=== PATIENT | female | born 1945 | race Caucasian/White ===

== ENCOUNTER 2022-11-25 07:25 | Day surgery (SDC) | payer MEDICARE ==
[2022-11-21 11:38] VITALS: BP 144/84
[~2022-11-25] VITALS: Ht 160 cm; Wt 70.9 kg
[~2022-11-25 07:25] MED LIST: CLINDAMYCIN HC300 MG PO; COZAAR50 MG PO; CRESTOR10 MG PO; D3-5000125 MCG PO; FEROSUL325 MG PO; FLEVOXIN TABLE1 EACH PO; FLUOCINONIDE15 G1 TOP; FLUOXETINE HCL60 MG PO; IBUPROFEN600 MG PO; METFORMIN HCL500 MG PO; MIRAPEX1 MG PO; NEURONTIN300 MG PO; PLAVIX75 MG PO; PROBIOTICS1 EACH PO; TRAZODONE HCL50 MG PO; VITAMIN B-121000 MC3 PO
[2022-11-25 07:37] VITALS: BP 125/62
--- NOTE | 2022-11-25 08:20 | NUR ---
PT AMBULATED TO THE RESTROOM AND BACK TO HER ROOM. TOLERATED WELL. PT PROVIDED A WARM BLANKET.
--- NOTE | 2022-11-25 10:06 | NUR ---
11/25/22 Marlo Rushing ARRIVED INTO PACU AT 0956. PATIENT WAS ASLEEP AND MAINTAINING HER OWN AIRWAY. PATIENT WAS ABLE TO RESPOND WHEN LIGHTLY STIMULATED. PATIENT DENIED ANY PAIN OR NAUSEA UPON ARRIVAL BUT DID GO BACK TO SLEEP.
[2022-11-25] MEDS ORDERED: IBUPROFEN600 MG PO (10:27)
[2022-11-25] MEDS ORDERED: OXYCODONE-ACET1 EAC1 PO (10:28)
[2022-11-25] MEDS ORDERED: ACETAMINOPHEN500 MG PO (10:28)
[2022-11-25] MEDS ORDERED: METAMUCIL660 GM PO (10:30)
[2022-11-25 10:31] VITALS: BP 133/79
--- NOTE | 2022-11-25 19:01 | OR ---
[facility] [address], [place] [address] Signed DATE OF OPERATION: 11/25/2022 SURGEON: Ravinder Marshall MD PREOPERATIVE DIAGNOSIS: Extensive prolapsing hemorrhoids with bleeding, grade 4 hemorrhoidal disease. POSTOPERATIVE DIAGNOSIS: Extensive prolapsing hemorrhoids with bleeding, grade 4 hemorrhoidal disease. PROCEDURE: Excision of complex hemorrhoidal disease including left lateral posterior accessory and right anterolateral hemorrhoidal complexes. ANESTHESIA: Saddle block with IV sedation, Devonte Ann-Marie, [employer] and local 10 mL of 0.25% Marcaine. INDICATIONS: This 77-year-old white woman is a patient of Dr. Mariee in [place]. She was referred for hemorrhoidal disease. She has relatively extensive hemorrhoidal disease for a number of years. She underwent what sounds like hemorrhoidectomy approximately hemorrhoidal banding approximately 40 years ago. The patient does take Plavix. She has had two small strokes about three years ago. Examination shows significant hemorrhoidal prolapse type disease. Certainly, these hemorrhoids and their associated bleeding are not amenable to hemorrhoidal banding and PPH therapy unlikely considering the findings. I have recommended operative open hemorrhoidal resection for control of her symptoms. The risk of bleeding, infection, variable degrees of incontinence and other unforeseen complications was reviewed in detail with her. She understands and wished to proceed. FINDINGS: The dominant hemorrhoidal complex was in the left lateral aspect. An accessory dominant area was in the accessory position in the midline posteriorly. Less disease was noted in the anterolateral aspect on the right. Hemorrhoidectomy included a wide resection well above the dentate line. At conclusion, good hemostasis was noted. DESCRIPTION OF PROCEDURE: The patient was brought to the operating room after undergoing saddle block type anesthetic. She was placed in the prone mark-knife position with a table flexed. The buttocks were taped apart with silk tape. The perianal preparation was undertaken with a Betadine based solution. She received preoperative antibiotic, Ancef, Flagyl, and Electronically Signed By: RAVINDER MARSHALL MD 11/25/22 1901 PATIENT NAME: JODY GUEVARA OPERATIVE REPORT DATE OF : 49 REPORT #: [id number] PHYSICIAN: RAVINDER MARSHALL MD PCP: EBONIE MARIEE MD REPORT IS CONFIDENTIAL AND NOT TO BE RELEASED WITHOUT AUTHORIZATION [facility] [address], [place] [address] Signed neomycin as an adjunct to a bowel prep preoperatively. She was maintained on a low-fiber diet leading up to operation, did not undergo cathartic therapy as well; however. Digital examination revealed some liquid stool, which was irrigated and suctioned free. There was no further stool leakage. Anal retractor was placed. Examination circumferentially undertaken. The dominant prolapsing hemorrhoidal disease (grade 4 hemorrhoidal disease) on the left lateral aspect. Christensen clamp was used to grasp the hemorrhoidal tissue and the root of the hemorrhoid was secured with a 2-0 chromic suture. Additional elevation of the external component of the hemorrhoid was undertaken. Electrocautery was used to excise the hemorrhoid sparing the internal muscle sphincter complex of course. The root of the hemorrhoid was secured with a chromic tie. Hemostasis assured with electrocautery and mucosa reapproximated with remaining chromic suture. The opening was left externally to allow for drainage as necessary. With similar technique, an accessory posterior hemorrhoidal complex was similarly excised and in the right anterior aspect that complex excised as well. Additional resection was deemed inadvisable. Irrigation was undertaken. A 10 mL of 0.25% Marcaine with epinephrine was injected and a peripad applied after application of a rolled Gel-Foam with bacitracin inserted into the anal canal. Sponge, needle, and counts reported as correct x3. Ravinder Marshall MD /MODL /[id number] cc: Ebonie Mariee MD Copies: EBONIE MARIEE MD ~ Electronically Signed By: RAVINDER MARSHALL MD 11/25/22 1901 PATIENT NAME: JODY GUEVARA OPERATIVE REPORT DATE OF : 49 REPORT #: [id number] PHYSICIAN: RAVINDER MARSHALL MD PCP: EBONIE MARIEE MD REPORT IS CONFIDENTIAL AND NOT TO BE RELEASED WITHOUT AUTHORIZATION
== END 2022-11-25 11:00 | disposition home or self-care (01) ==
LOC: DS 07:25
PROVIDERS: ATTEND Surgery
PROC: 06BY0ZC Excision of Hemorrhoidal Plexus, Open Approach (ICD-10-PCS; 2022-11-25)
PROC: 06BY0ZC Excision of Hemorrhoidal Plexus, Open Approach (ICD-10-PCS; principal; 2022-11-25 09:00)
DX: K64.3 Fourth degree hemorrhoids (principal); I10 Essential (primary) hypertension; Z86.73 Personal history of transient ischemic attack (TIA), and cerebral infarction without residual deficits; Z96.659 Presence of unspecified artificial knee joint; Z88.0 Allergy status to penicillin; Z88.2 Allergy status to sulfonamides; Z79.02 Long term (current) use of antithrombotics/antiplatelets
CPT/HCPCS: J0690; J1644; J2001; J2250; J2704; J7121